=== PATIENT | female | born 1960 | race African-American/Black ===

== ENCOUNTER 2018-10-24 22:40 | Emergency (ER) | payer MEDICARE ==
[~2018-10-24] VITALS: Ht 160 cm; Wt 91.0 kg
[2018-10-25] MEDS ORDERED: ACETAMINOPHEN 325MG TABLET PO ONE (01:00)
[2018-10-25] MEDS ORDERED: HYDROCODONE/ACETAMINOPHEN 10/325MG TABLET PO ONE (01:00)
[2018-10-25 01:10] VITALS: BP 119/76
[2018-10-25 01:33] LABS: ETHANOL BLOOD < 10 mg/dL
== END 2018-10-25 03:04 | disposition home or self-care (01) ==
LOC: ER 22:40
DX: S63.501A Unspecified sprain of right wrist, initial encounter (principal); S60.221A Contusion of right hand, initial encounter; I10 Essential (primary) hypertension; Y93.89 Activity, other specified; W01.0XXA Fall on same level from slipping, tripping and stumbling without subsequent striking against object, initial encounter; Y92.018 Other place in single-family (private) house as the place of occurrence of the external cause
CPT/HCPCS: 29125; 36415; 73100; 73130; 84550; 93971; 99284

== ENCOUNTER 2018-11-02 10:02 | Emergency (ER) | payer MEDICARE ==
[~2018-11-02] VITALS: Ht 160 cm; Wt 89.5 kg
[2018-11-02] MEDS ORDERED: keflex (10:58)
[2018-11-02] MEDS ORDERED: lisinopril (10:58)
[2018-11-02] MEDS ORDERED: advil (10:58)
[2018-11-02] MEDS ORDERED: motrin (10:58)
[2018-11-02] MEDS ORDERED: benadryl (10:58)
[2018-11-02] MEDS ORDERED: IBUPROFEN 600MG TABLET PO STA (12:09)
[2018-11-02 13:47] VITALS: BP 132/86
== END 2018-11-02 13:48 | disposition home or self-care (01) ==
LOC: ER 10:02
DX: S63.501A Unspecified sprain of right wrist, initial encounter (principal); I10 Essential (primary) hypertension; F17.200 Nicotine dependence, unspecified, uncomplicated; X58.XXXA Exposure to other specified factors, initial encounter; Y93.89 Activity, other specified; Y92.89 Other specified places as the place of occurrence of the external cause; Y99.8 Other external cause status
CPT/HCPCS: 73110; 99283

== ENCOUNTER 2022-04-28 11:04 | Inpatient (IN) | payer MEDICARE, MEDICAID ==
[~2022-04-28] VITALS: Ht 154.9 cm; Wt 108.9 kg
[~2022-04-28 11:04] MED LIST: advil; benadryl; keflex; lisinopril; motrin
[2022-04-28] MEDS ORDERED: PREDNISONE 20MG TABLET PO STA (11:38)
[2022-04-28] MEDS ORDERED: ALBUTEROL (0.083%) 2.5MG/3ML NEB HHN STA (11:38)
[2022-04-28] MEDS ORDERED: IPRATROPIUM BROMIDE (0.02%) 0.5MG/2.5ML NEB HHN STA (11:38)
[2022-04-28 12:27] LABS: BASOPHILS % 0.4 % (0.0-2.0); EOSINOPHILS % 0.7 % (0.0-5.0); HEMATOCRIT. 37.8 % (36.0-48.0); HEMOGLOBIN. 11.8 g/dL (12.0-16.0); LYMPHOCYTES % 21.2 % (20.0-50.0); MEAN CORPUSCULAR VOLUME 89.8 fL (81.0-99.0); MEAN PLATELET VOLUME 9.8 fl (7.4-10.4); MONOCYTES % 11.5 % (2.0-8.0); NEUTROPHILS % 66.2 % (40.0-76.0); PLATELET 329 x1000/uL (130-400); RED BLOOD CELL COUNT 4.21 mill/uL (4.2-5.4); RED CELL DISTRIBUTION WIDTH 16.5 % (11.6-14.6)
[2022-04-28 12:33] LABS: CHLORIDE 109 mEq/L (98-107)
[2022-04-28] MEDS ORDERED: SODIUM BICARBONATE 8.4% 1 MEQ/ML 50ML SYR IV ONE (13:30)
[2022-04-28] MEDS ORDERED: INSULIN REGULAR (HUMULIN R) 300UNITS/3ML VIAL IV ONE (13:30)
[2022-04-28] MEDS ORDERED: SODIUM POLYSTYRENE SULFONATE 15 G/60 ML BOT PO ONE (13:30)
[2022-04-28] MEDS ORDERED: DEXTROSE 50% WATER 50ML SYRINGE IV ONE (13:30)
[2022-04-28] MEDS: FUROSEMIDE 100MG/10ML VIAL IV STA ×2 (14:56→16:18)
[2022-04-28] MEDS ORDERED: DIPHENHYDRAMINE 50MG/ML VIAL IV PRN (17:45)
[2022-04-28] MEDS ORDERED: ALBUTEROL (0.083%) 2.5MG/3ML NEB INH PRN (17:45)
[2022-04-28] MEDS ORDERED: DEXTROSE 50% WATER 50ML SYRINGE IV PRN (17:45)
[2022-04-28] MEDS ORDERED: ACETAMINOPHEN 325MG TABLET PO PRN (17:45)
[2022-04-28] MEDS ORDERED: ONDANSETRON HCL 4MG/2ML INJ IV PRN (17:45)
[2022-04-28] MEDS ORDERED: CLONIDINE 0.1MG TABLET PO PRN (17:45)
[2022-04-28] MEDS ORDERED: DEXAMETHASONE 4MG TABLET PO SCH (17:45)
[2022-04-28] MEDS: SODIUM CHLORIDE 0.9% 1,000 ML IV SCH (18:11)
[2022-04-28] MEDS: INSULIN LISPRO 100 UNITS/ML SUBCUT SCH ×2 (19:37→22:24)
[2022-04-28 21:00] VITALS: BP 91/64
[2022-04-28] MEDS ORDERED: ZOLPIDEM TARTRATE 5MG TABLET PO PRN (21:00)
[2022-04-28] MEDS: BLOOD SUGAR DIAGNOSTIC STRIP TEST SCH (21:53)
[2022-04-28] MEDS: ENOXAPARIN 30MG/0.3ML SYR SUBCUT SCH (22:25)
[2022-04-28] MEDS: OMEPRAZOLE 20MG CAPSULE EXTENDED RELEASE PO SCH (22:25)
[2022-04-29] VITALS (7 sets, daily range): BP systolic 84–107; BP diastolic 39–75
[2022-04-29] MEDS: CEFTRIAXONE 1,000 MG in DEXTROSE 5% WATER 50 ML IV SCH ×2 (03:25→13:44)
[2022-04-29] MEDS: SODIUM CHLORIDE 0.9% 1,000 ML IV SCH ×3 (03:25→23:17)
[2022-04-29] MEDS: OMEPRAZOLE 20MG CAPSULE EXTENDED RELEASE PO SCH ×2 (06:21→20:50)
[2022-04-29] MEDS: BLOOD SUGAR DIAGNOSTIC STRIP TEST SCH ×4 (06:22→20:50)
[2022-04-29 07:39] LABS: BASOPHILS % 0.2 % (0.0-2.0); HEMATOCRIT. 33.1 % (36.0-48.0); HEMOGLOBIN. 10.2 g/dL (12.0-16.0); LYMPHOCYTES % 15.3 % (20.0-50.0); MEAN CORPUSCULAR VOLUME 90.8 fL (81.0-99.0); MEAN PLATELET VOLUME 9.8 fl (7.4-10.4); MONOCYTES % 9.7 % (2.0-8.0); NEUTROPHILS % 74.8 % (40.0-76.0); PLATELET 275 x1000/uL (130-400); RED BLOOD CELL COUNT 3.64 mill/uL (4.2-5.4); RED CELL DISTRIBUTION WIDTH 16.1 % (11.6-14.6)
[2022-04-29] MEDS: INSULIN LISPRO 100 UNITS/ML SUBCUT SCH ×4 (07:50→20:54)
[2022-04-29] MEDS ORDERED: ERGOCALCIFEROL 50000UNITS CAPSULE PO SCH (10:00)
[2022-04-29] MEDS: DEXAMETHASONE 6MG TABLET PO SCH (13:24)
[2022-04-29] MEDS: CHLORHEXIDINE GLUCONATE 4% EXTERNAL USE TOP SCH ×3 (13:43→20:54)
[2022-04-29 20:33] LABS: CLARITY URINE CLEAR (CLEAR); COLOR URINE YELLOW (YELLOW); KETONES URINE NEGATIVE (NEGATIVE); LEUKOCYTE ESTERASE URINE NEGATIVE (NEGATIVE); NITRITE URINE NEGATIVE (NEGATIVE); OCCULT BLOOD URINE NEGATIVE (NEGATIVE); PH URINE 6.5 (4.5-8.0); PROTEIN URINE NEGATIVE (NEGATIVE); SPECIFIC GRAVITY URINE 1.011 (1.005-1.030); UROBILINOGEN URINE 0.2 E.U./dL (0.2-1.0)
[2022-04-29] MEDS: ENOXAPARIN 30MG/0.3ML SYR SUBCUT SCH (20:50)
[2022-04-30] VITALS: BP 83/49
[2022-04-30] MEDS: ACETAMINOPHEN 325MG TABLET PO PRN ×3 (01:36→21:58)
[2022-04-30] MEDS ORDERED: DIGOXIN 500MCG/2ML AMP IV NR ×2 (02:30→06:30)
[2022-04-30 03:38] VITALS: BP 85/46
[2022-04-30] MEDS ORDERED: ENOXAPARIN 80MG/0.8ML SYR SUBCUT NR (04:30)
[2022-04-30] MEDS: BLOOD SUGAR DIAGNOSTIC STRIP TEST SCH ×4 (06:20→20:57)
[2022-04-30] MEDS: OMEPRAZOLE 20MG CAPSULE EXTENDED RELEASE PO SCH ×2 (06:20→20:57)
[2022-04-30] MEDS: INSULIN LISPRO 100 UNITS/ML SUBCUT SCH ×4 (07:50→20:57)
[2022-04-30 07:58] LABS: D-DIMER 3.37 mg/L FEU (<0.50); PROTHROMBIN TIME 10.4 sec (9.6-11.0)
[2022-04-30 08:00] VITALS: BP 90/58
[2022-04-30 08:26] LABS: PHOSPHORUS 4.6 mg/dL (2.5-4.9); T4 FREE 1.03 ng/dL (0.76-1.46)
[2022-04-30 08:34] LABS: BASOPHILS % 0.7 % (0.0-2.0); EOSINOPHILS % 1.6 % (0.0-5.0); HEMATOCRIT. 38.1 % (36.0-48.0); HEMOGLOBIN. 11.4 g/dL (12.0-16.0); LYMPHOCYTES % 27.5 % (20.0-50.0); MEAN CORPUSCULAR HEMOGLOBIN 27.7 pg (28.0-32.0); MEAN CORPUSCULAR VOLUME 92.8 fL (81.0-99.0); MEAN PLATELET VOLUME 9.9 fl (7.4-10.4); MONOCYTES % 13.1 % (2.0-8.0); NEUTROPHILS % 57.1 % (40.0-76.0); PLATELET 224 x1000/uL (130-400); RED BLOOD CELL COUNT 4.11 mill/uL (4.2-5.4); RED CELL DISTRIBUTION WIDTH 16.1 % (11.6-14.6)
[2022-04-30] MEDS: SODIUM CHLORIDE 0.9% 1,000 ML IV SCH ×2 (09:45→15:10)
[2022-04-30] MEDS: DEXAMETHASONE 6MG TABLET PO SCH (11:45)
[2022-04-30] MEDS: CHLORHEXIDINE GLUCONATE 4% EXTERNAL USE TOP SCH ×4 (11:46→20:58)
[2022-04-30 12:00] VITALS: BP 94/61
[2022-04-30] MEDS ORDERED: MAGNESIUM 1 G PREMIX 100 ML IV NR (13:00)
[2022-04-30] MEDS: ASPIRIN 81MG EC TABLET PO SCH (15:01)
[2022-04-30 16:00] VITALS: BP 98/64
[2022-04-30] MEDS: GUAIFENESIN 200MG/10ML SUGAR FREE UDC PO PRN ×2 (17:22→21:58)
[2022-04-30 19:42] VITALS: BP 97/48
[2022-04-30] MEDS: METOPROLOL TARTRATE 50MG TABLET PO SCH (20:57)
[2022-04-30] MEDS: CEFTRIAXONE 1,000 MG in DEXTROSE 5% WATER 50 ML IV SCH (20:57)
[2022-05-01] VITALS: BP 91/43
[2022-05-01 04:00] VITALS: BP 99/40
[2022-05-01] MEDS: SODIUM CHLORIDE 0.9% 1,000 ML IV SCH (05:11)
[2022-05-01] MEDS: BLOOD SUGAR DIAGNOSTIC STRIP TEST SCH (06:30)
[2022-05-01] MEDS: OMEPRAZOLE 20MG CAPSULE EXTENDED RELEASE PO SCH (06:30)
[2022-05-01] MEDS: INSULIN LISPRO 100 UNITS/ML SUBCUT SCH (07:50)
[2022-05-01] MEDS ORDERED: ENOXAPARIN 100MG/ML SYR SUBCUT SCH (09:00)
[2022-05-01] MEDS ORDERED: ENOXAPARIN 40MG/0.4ML SYR SUBCUT SCH (09:00)
[2022-05-01] MEDS: DEXAMETHASONE 6MG TABLET PO SCH (09:46)
[2022-05-01] MEDS: ASPIRIN 81MG EC TABLET PO SCH (09:46)
[2022-05-01] MEDS: METOPROLOL TARTRATE 50MG TABLET PO SCH (09:47)
[2022-05-01] MEDS: CHLORHEXIDINE GLUCONATE 4% EXTERNAL USE TOP SCH (09:47)
[2022-05-01 12:00] VITALS: BP 100/107
[2022-05-01 16:45] VITALS: BP 110/68
== END 2022-05-01 17:40 | disposition home or self-care (01) | DRG 191 ==
LOC: ER 11:04 → 6WST 13:34 → ENRESERV 16:58
PROVIDERS: ADMIT Internal Medicine; ATTEND Internal Medicine
PROC: 5A09357 Assistance with Respiratory Ventilation, Less than 24 Consecutive Hours, Continuous Positive Airway Pressure (ICD-10-PCS; principal; 2022-04-30)
DX: J44.1 Chronic obstructive pulmonary disease with (acute) exacerbation (principal); E66.2 Morbid (severe) obesity with alveolar hypoventilation; N17.9 Acute kidney failure, unspecified; R65.10 Systemic inflammatory response syndrome (SIRS) of non-infectious origin without acute organ dysfunction; Z68.42 Body mass index [BMI] 45.0-49.9, adult; E86.0 Dehydration; E87.5 Hyperkalemia; I25.10 Atherosclerotic heart disease of native coronary artery without angina pectoris; I48.0 Paroxysmal atrial fibrillation; E78.5 Hyperlipidemia, unspecified; E11.22 Type 2 diabetes mellitus with diabetic chronic kidney disease; I51.7 Cardiomegaly; L73.2 Hidradenitis suppurativa; I25.2 Old myocardial infarction; N18.9 Chronic kidney disease, unspecified; Z20.822 Contact with and (suspected) exposure to COVID-19; I12.9 Hypertensive chronic kidney disease with stage 1 through stage 4 chronic kidney disease, or unspecified chronic kidney disease; Z86.16 Personal history of COVID-19; Z82.49 Family history of ischemic heart disease and other diseases of the circulatory system; Z90.710 Acquired absence of both cervix and uterus; Z79.82 Long term (current) use of aspirin; D64.9 Anemia, unspecified
CPT/HCPCS: 36415; 71045; 78582; 80048; 80053; 81003; 82040; 82962; 83036; 83735; 84100; 84134; 84439; 84443; 85025; 85379; 87426; 93005; 93306; 93970; 94640; 94660; 99285; A9558; C9803; J0696; J1160; J1650; J1815; J1940; J3475; J3490; J7060; J7512; J8540